=== PATIENT | female | born 1935 | race Caucasian/White ===

== ENCOUNTER 2020-03-23 14:13 | Emergency (ER) | payer MEDICARE, OTHER ==
[~2020-03-23] VITALS: Ht 167.7 cm; Wt 81.3 kg
--- OUTSIDE RECORDS SUMMARY | 2020-03-23 14:21 | XMS REPORT | Continuity of Care Document ---
Author Author The [facility] Organization [facility] Address Unknown Phone Unavailable Allergies There is no data. Medications There is no data. Problems There is no data. Procedures There is no data. Results Test Result Range CMP - 11/20/18 12:04 GLUCOSE 103 mg/dL 65-99 UREA NITROGEN (BUN) 16 mg/dL 7-25 CREATININE 1.05 mg/dL 0.60-0.88 eGFR NON-AFR. BANGLADESHI 49 mL/min/1.73m2 > OR = 60 eGFR 57 mL/min/1.73m2 > OR = 60 BUN/CREATININE RATIO 15 (calc) 6-22 SODIUM 139 mmol/L 135-146 POTASSIUM 4.3 mmol/L 3.5-5.3 CHLORIDE 102 mmol/L 98-110 CARBON DIOXIDE 29 mmol/L 20-32 CALCIUM 9.7 mg/dL 8.6-10.4 PROTEIN, TOTAL 7.2 g/dL 6.1-8.1 ALBUMIN 4.7 g/dL 3.6-5.1 GLOBULIN 2.5 g/dL (calc) 1.9-3.7 ALBUMIN/GLOBULIN RATIO 1.9 (calc) 1.0-2. 5 BILIRUBIN, TOTAL 0.6 mg/dL 0.2-1.2 ALKALINE PHOSPHATASE 87 U/L 33-130 AST 17 U/L 10-35 ALT 15 U/L 6-29 CBC w/MANUAL DIFF - 11/20/18 12:04 WHITE BLOOD CELL COUNT 5.5 Thousand/uL 3 .8-10.8 RED BLOOD CELL COUNT 5.30 Million/uL 3.8 0-5.10 HEMOGLOBIN 14.8 g/dL 11.7-15.5 HEMATOCRIT 44.7 % 35.0-45.0 MCV 84.3 fL 80.0-100.0 MCH 27.9 pg 27.0-33.0 MCHC 33.1 g/dL 32.0-36.0 RDW 14.2 % 11.0-15.0 PLATELET COUNT 280 Thousand/uL 140-400 MPV 11.0 fL 7.5-12.5 ABSOLUTE NEUTROPHILS TNP cells/uL NRG CMP - 11/30/19 11:26 GLUCOSE 84 mg/dL 65-99 UREA NITROGEN (BUN) 15 mg/dL 7-25 CREATININE 0.98 mg/dL 0.60-0.88 eGFR NON-AFR. BANGLADESHI 53 mL/min/1.73m2 > OR = 60 eGFR 62 mL/min/1.73m2 > OR = 60 BUN/CREATININE RATIO 15 (calc) 6-22 SODIUM 138 mmol/L 135-146 POTASSIUM 4.7 mmol/L 3.5-5.3 CHLORIDE 101 mmol/L 98-110 CARBON DIOXIDE 28 mmol/L 20-32 CALCIUM 9.6 mg/dL 8.6-10.4 PROTEIN, TOTAL 6.9 g/dL 6.1-8.1 ALBUMIN 4.5 g/dL 3.6-5.1 GLOBULIN 2.4 g/dL (calc) 1.9-3.7 ALBUMIN/GLOBULIN RATIO 1.9 (calc) 1.0-2. 5 BILIRUBIN, TOTAL 0.5 mg/dL 0.2-1.2 ALKALINE PHOSPHATASE 93 U/L 37-153 AST 20 U/L 10-35 ALT 18 U/L 6-29 CBC - 11/30/19 11:26 WHITE BLOOD CELL COUNT 6.3 Thousand/uL 3 .8-10.8 RED BLOOD CELL COUNT 5.19 Million/uL 3.8 0-5.10 HEMOGLOBIN 14.6 g/dL 11.7-15.5 HEMATOCRIT 43.9 % 35.0-45.0 MCV 84.6 fL 80.0-100.0 MCH 28.1 pg 27.0-33.0 MCHC 33.3 g/dL 32.0-36.0 RDW 14.3 % 11.0-15.0 PLATELET COUNT 280 Thousand/uL 140-400 MPV 11.2 fL 7.5-12.5 ABSOLUTE NEUTROPHILS 3100 cells/uL 1500- 7800 ABSOLUTE LYMPHOCYTES 2350 cells/uL 850-3 900 ABSOLUTE MONOCYTES 630 cells/uL 200-950 ABSOLUTE EOSINOPHILS 139 cells/uL 15-500 ABSOLUTE BASOPHILS 82 cells/uL 0-200 NEUTROPHILS 49.2 % NRG LYMPHOCYTES 37.3 % NRG MONOCYTES 10.0 % NRG EOSINOPHILS 2.2 % NRG BASOPHILS 1.3 % NRG CMP - 07/16/20 10:50 GLUCOSE 82 mg/dL 65-99 UREA NITROGEN (BUN) 18 mg/dL 7-25 CREATININE 1.03 mg/dL 0.60-0.88 eGFR NON-AFR. BANGLADESHI 50 mL/min/1.73m2 > OR = 60 eGFR 58 mL/min/1.73m2 > OR = 60 BUN/CREATININE RATIO 17 (calc) 6-22 SODIUM 139 mmol/L 135-146 POTASSIUM 4.7 mmol/L 3.5-5.3 CHLORIDE 100 mmol/L 98-110 CARBON DIOXIDE 28 mmol/L 20-32 CALCIUM 9.7 mg/dL 8.6-10.4 PROTEIN, TOTAL 7.1 g/dL 6.1-8.1 ALBUMIN 4.4 g/dL 3.6-5.1 GLOBULIN 2.7 g/dL (calc) 1.9-3.7 ALBUMIN/GLOBULIN RATIO 1.6 (calc) 1.0-2. 5 BILIRUBIN, TOTAL 0.6 mg/dL 0.2-1.2 ALKALINE PHOSPHATASE 91 U/L 37-153 AST 19 U/L 10-35 ALT 21 U/L 6-29 Encounters ACCT No. Visit Date/Time Discharge Status Pt. Type Provider Facility Loc./Unit Complaint [id number] 02/21/2020 10:20:00 02/21/2020 23:59: 59 CLS [facility] [id number] 02/21/2020 10:20:00 Document Registration [id number] 11/30/2019 11:00:00 Document Registration [id number] 11/20/2018 09:00:00 Document Registration [id number] 03/23/2020 14:16:[address] Emergency OPAL HERNANDEZ, LUAN Swanson [facility] ER FS PT FEELS ANXIOUS
--- NOTE | 2020-03-23 14:55 | NUR ---
Cornelius barragan in [facility] - 03/23/20 at 1602 by [id number] Contacted by [facility] at this time and was told that they would start sending out additional referrals to other mental health facilities such as [facility] and [facility].
--- NOTE | 2020-03-23 14:56 | ED Cardiac General ---
History of Present Illness General Chief Complaint: Cardiac/General Problems Stated Complaint: PT FEELS ANXIOUS Nursing Triage Note: Patient presents to the ED with c/o recurrent episodes of jitteriness, shakiness, racing heart rate. She reports that she has had 3 episodes today and felt she needed to be evaluated. She states, "I feel like I am going to ". History of Present Illness Date Seen by Provider: Mar 23, 2020 Time Seen by Provider: 14:51 Initial Comments Pt presents with an episode of shakiness, heart racing that happened earlier. She says that she had a spell that happened around 11am today. She had another spell about 2 months ago. She just felt like couldn't do anything, she felt like she was about to , she felt like her heart was racing, felt weak all over. Does not have any pain during these episodes. She feels better now. Allergies and Home Medications Allergies Coded Allergies: No Known Drug Allergies (Unverified , 03/23/20) Patient Home Medication List Home Medication List Reviewed: Yes Review of Systems Review of Systems Constitutional: No chills, No fever; weakness EENTM: No Blurred Vision, No Double Vision Respiratory: Denies Cough, Denies Shortness of Air Cardiovascular: Lightheadedness, Palpitations Gastrointestinal: Denies Nausea, Denies Vomiting Genitourinary: Denies Burning, Denies Discharge Musculoskeletal: No back pain, No muscle pain Skin: No lesions, No rash Psychiatric/Neurological: Anxiety; Denies Numbness, Denies Weakness Past Mpaacdm-Gaoqoa-Tuiqzd Hx Patient Social History Alcohol Use: Denies Use Recreational Drug Use: No Smoking Status: Former Smoker Type Used: Cigarettes Former Smoker, Quit: Aug 08, 2009 2nd Hand Smoke Exposure: No Recent Foreign Travel: No Contact w/Someone Who Travel: No Recent Infectious Disease Expo: No Recent Hopitalizations: No Physical Abuse: No Sexual Abuse: No Mistreated: No Fear: No Seasonal Allergies Seasonal Allergies: No Past Medical History Appendectomy, Bowel Surgery, Gallbladder Respiratory: Yes COPD Cardiac: Yes High Cholesterol, Hypertension Neurological: No Genitourinary: No Gastrointestinal: No Musculoskeletal: No Endocrine: No HEENT: No Cancer: No Psychosocial: No Integumentary: No Blood Disorders: No Physical Exam Vital Signs Vital Signs - First Documented 03/23/20 14:30 Temp 36.4 Pulse 88 Resp 20 B/P (MAP) 181/70 (107) Pulse Ox 98 O2 Delivery Room Air Capillary Refill : Less Than 3 Seconds Height, Weight, BMI Height: '" Weight: lbs. oz. kg; 28.00 BMI Method: General Appearance: No Apparent Distress, WD/WN HEENT: PERRL/EOMI, Normal ENT Inspection Neck: Normal Inspection, Supple Respiratory: Lungs Clear, Normal Breath Sounds, No Accessory Muscle Use Cardiovascular: Regular Rate, Rhythm, Normal Peripheral Pulses Gastrointestinal: Non Tender, Soft Extremity: Normal Capillary Refill Neurologic/Psychiatric: Alert, Oriented x3, No Motor/Sensory Deficits, Normal Mood/Affect Skin: Normal Color, Warm/Dry Progress/Results/Core Measures Results/Orders Lab Results Laboratory Tests Test 03/23/20 14:20 03/23/20 14:50 Range/Units Urine Color YELLOW Urine Clarity CLEAR Urine pH 7.0 5-9 Urine Specific [place] 1.010 L 1.016-1.022 Urine Protein NEGATIVE NEGATIVE Urine Glucose (UA) NEGATIVE NEGATIVE Urine Ketones NEGATIVE NEGATIVE Urine Nitrite NEGATIVE NEGATIVE Urine Bilirubin NEGATIVE NEGATIVE Urine Urobilinogen 0.2 < = 1.0 MG/DL Urine Leukocyte Esterase NEGATIVE NEGATIVE Urine RBC (Auto) NEGATIVE NEGATIVE Urine RBC NONE /HPF Urine WBC 2-5 /HPF Urine Squamous Epithelial Cells 10-25 H /HPF Urine Crystals NONE /LPF Urine Bacteria NEGATIVE /HPF Urine Casts NONE /LPF Urine Mucus NEGATIVE /LPF Urine Culture Indicated NO White Blood Count 7.0 4.3-11.0 10^3/uL Red Blood Count 5.03 4.35-5.85 10^6/uL Hemoglobin 14.4 11.5-16.0 G/DL Hematocrit 42 35-52 % Mean Corpuscular Volume 84 80-99 FL Mean Corpuscular Hemoglobin 29 25-34 PG Mean Corpuscular Hemoglobin Concent 34 32-36 G/DL Red Cell Distribution Width 13.2 10.0-14.5 % Platelet Count 287 130-400 10^3/uL Mean Platelet Volume 10.2 7.4-10.4 FL Neutrophils (%) (Auto) 60 42-75 % Lymphocytes (%) (Auto) 29 12-44 % Monocytes (%) (Auto) 9 0-12 % Eosinophils (%) (Auto) 1 0-10 % Basophils (%) (Auto) 1 0-10 % Neutrophils # (Auto) 4.2 1.8-7.8 X 10^3 Lymphocytes # (Auto) 2.0 1.0-4.0 X 10^3 Monocytes # (Auto) 0.7 0.0-1.0 X 10^3 Eosinophils # (Auto) 0.1 0.0-0.3 10^3/uL Basophils # (Auto) 0.1 0.0-0.1 10^3/uL Sodium Level 140 135-145 MMOL/L Potassium Level 4.3 3.6-5.0 MMOL/L Chloride Level 101 98-107 MMOL/L Carbon Dioxide Level 28 21-32 MMOL/L Anion Gap 11 5-14 MMOL/L Blood Urea Nitrogen 15 7-18 MG/DL Creatinine 1.21 0.60-1.30 MG/DL Estimat Glomerular Filtration Rate 42 BUN/Creatinine Ratio 12 Glucose Level 109 H 70-105 MG/DL Calcium Level 10.0 8.5-10.1 MG/DL Corrected Calcium 9.7 8.5-10.1 MG/DL Total Bilirubin 0.3 0.1-1.0 MG/DL Aspartate Amino Transf (AST/SGOT) 22 5-34 U/L Alanine Aminotransferase (ALT/SGPT) 18 0-55 U/L Alkaline Phosphatase 88 40-136 U/L Troponin I < 0.30 <0.30 NG/ML Total Protein 7.3 6.4-8.2 GM/DL Albumin 4.4 3.2-4.5 GM/DL My Orders Orders - LUAN JOSEPH MD Cbc With Automated Diff (03/23/20 14:38) Comprehensive Metabolic Panel (03/23/20 14:38) Troponin I Fs (03/23/20 14:38) Ua Culture If Indicated (03/23/20 14:38) Ekg Tracing (03/23/20 14:30) Chest Pa/Lat (2 View) (03/23/20 15:20) Vital Signs/I&O 03/23/20 14:30 Temp 36.4 Pulse 88 Resp 20 B/P (MAP) 181/70 (107) Pulse Ox 98 O2 Delivery Room Air Blood Pressure Mean: 107 Progress Progress Note : Time: 15:38 Progress Note Workup including EKG and troponin negative, CXR with no acute finding. Pt feels fine here in the ED. Will discharge home. 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 Patient Instructions: Generalized Weakness (DC) LUAN JOSEPH MD Mar 23, 2020 14:56
[2020-03-23 15:00] LABS: BILIRUBIN,URINE NEGATIVE (NEGATIVE); CLARITY,URINE CLEAR; COLOR,URINE YELLOW; GLUCOSE, URINE (UA) NEGATIVE (NEGATIVE); KETONES,URINE NEGATIVE (NEGATIVE); LEUKOCYTE ESTERASE ,URINE NEGATIVE (NEGATIVE); NITRITE,URINE NEGATIVE (NEGATIVE); PROTEIN,URINE NEGATIVE (NEGATIVE)
[2020-03-23 15:01] LABS: BACTERIA,URINE NEGATIVE /HPF
[2020-03-23 15:05] LABS: BASOPHILS # (AUTO) 0.1 10^3/uL (0.0-0.1); BASOPHILS % (AUTO) 1 % (0-10); EOSINOPHILS # (AUTO) 0.1 10^3/uL (0.0-0.3); EOSINOPHILS % (AUTO) 1 % (0-10); HEMATOCRIT 42 % (35-52); HEMOGLOBIN 14.4 G/DL (11.5-16.0); LYMPHOCYTES % (AUTO) 29 % (12-44); MEAN CORPUSCULAR HEMOGLOBIN 29 PG (25-34); MEAN CORPUSCULAR HGB CONC 34 G/DL (32-36); MEAN CORPUSCULAR VOLUME 84 FL (80-99); MEAN PLATELET VOLUME 10.2 FL (7.4-10.4); MONOCYTES # (AUTO) 0.7 X 10^3 (0.0-1.0); MONOCYTES % (AUTO) 9 % (0-12); NEUTROPHILS # (AUTO) 4.2 X 10^3 (1.8-7.8); NEUTROPHILS % (AUTO) 60 % (42-75); PLATELET COUNT 287 10^3/uL (130-400); RED CELL DISTRIBUTION WIDTH 13.2 % (10.0-14.5)
[2020-03-23 15:19] LABS: ALKALINE PHOSPHATASE 88 U/L (40-136); BILIRUBIN,TOTAL 0.3 MG/DL (0.1-1.0); BUN/CREATININE RATIO 12; CARBON DIOXIDE 28 MMOL/L (21-32); CHLORIDE 101 MMOL/L (98-107); CREATININE SERUM 1.21 MG/DL (0.60-1.30); GFR ESTIMATED 42; GLUCOSE 109 MG/DL (70-105); POTASSIUM 4.3 MMOL/L (3.6-5.0); SODIUM 140 MMOL/L (135-145)
[2020-03-23 15:20] LABS: ALANINE AMINOTRANSFERASE 18 U/L (0-55); ALBUMIN 4.4 GM/DL (3.2-4.5); TOTAL PROTEIN 7.3 GM/DL (6.4-8.2)
[2020-03-23 15:44] VITALS: BP 178/70
--- NOTE | 2020-03-23 15:52 | Diagnostic Imaging Report ---
INDICATION: Recurrent episodes of jitteriness, shakiness, racing heart rate and chest pain. TECHNIQUE: Two view chest, 3:25 PM. CORRELATION STUDY: None. FINDINGS: Heart size within normal limits. Tortuous course of the thoracic aorta. Calcification of the aortic arch. Lung edouard are hyperinflated but overall clear. Calcified granuloma in lateral left mid lung. Visualized osseous structures are unremarkable. IMPRESSION: Hyperinflated lung edouard compatible with COPD. No infiltrate or acute abnormality. Dictated by: Dictated on workstation # [id number]
== END 2020-03-23 15:44 | disposition home or self-care (01) ==
LOC: ER FS 14:16
DX: R53.1 Weakness (principal); R00.2 Palpitations; Z87.891 Personal history of nicotine dependence
CPT/HCPCS: 36415; 71046; 80053; 81000; 84484; 85025; 93005

== ENCOUNTER 2022-11-09 15:24 | Emergency (ER) | payer MEDICARE ==
[2022-11-09 15:52] LABS: BASOPHILS # (AUTO) 0.1 10^3/uL (0.0-0.1); BASOPHILS % (AUTO) 1 % (0-10); EOSINOPHILS # (AUTO) 0.2 10^3/uL (0.0-0.3); EOSINOPHILS % (AUTO) 3 % (0-10); HEMATOCRIT 39 % (35-52); LYMPHOCYTES # (AUTO) 1.8 10^3/uL (1.0-4.0); LYMPHOCYTES % (AUTO) 27 % (12-44); MEAN CORPUSCULAR HEMOGLOBIN 28 pg (25-34); MEAN CORPUSCULAR HGB CONC 33 g/dL (32-36); MEAN CORPUSCULAR VOLUME 84 fL (80-99); MONOCYTES # (AUTO) 0.7 10^3/uL (0.0-1.0); MONOCYTES % (AUTO) 11 % (0-12); NEUTROPHILS # (AUTO) 3.9 10^3/uL (1.8-7.8); NEUTROPHILS % (AUTO) 58 % (42-75); PLATELET COUNT 266 10^3/uL (130-400); WHITE BLOOD COUNT 6.7 10^3/uL (4.3-11.0)
--- NOTE | 2022-11-09 16:12 | ED Lower Extremity ---
General Chief Complaint: Lower Extremity Stated Complaint: FEET SWELLING Nursing Triage Note: Patient reports she began having bilateral lower extremity swelling yesterday. Source: patient History of Present Illness Date Seen by Provider: Nov 09, 2022 Time Seen by Provider: 15:31 Initial Comments 87-year-old female presenting with complaints of bilateral lower extremity swelling that started yesterday. She felt like the swelling had gone down some overnight but then got worse again throughout the day. She had called the nurse advice line for her insurance and they told her she needed to be seen in the emergency department for possible heart problems. She denies any chest pain, nausea, vomiting, history of heart problems. She does have a history of high blood pressure. She denies having any pain to her legs and there is no increased redness or warmth. She was just concerned because they were swollen. Onset: yesterday Severity: moderate Method of Injury: unknown Modifying Factors: Improves With Other (Elevation of her legs helped with the swelling) Allergies and Home Medications Allergies Coded Allergies: No Known Drug Allergies (Unverified , 03/23/20) Patient Home Medication List Home Medication List Reviewed: Yes Review of Systems Constitutional: No chills, No fever EENTM: no symptoms reported Respiratory: no symptoms reported Cardiovascular: edema Gastrointestinal: no symptoms reported Genitourinary: no symptoms reported Musculoskeletal: no symptoms reported Skin: no symptoms reported Psychiatric/Neurological: No Symptoms Reported Past Grlcetp-Hcbtem-Ueibdh Hx Patient Social History Tobacco Use?: No Substance use?: No Alcohol Use?: No Pt feels they are or have been: No Seasonal Allergies Seasonal Allergies: No Past Medical History Surgery/Hospitalization HX: COPD, HTN Appendectomy, Bowel Surgery, Gallbladder Respiratory: Yes COPD Cardiac: Yes High Cholesterol, Hypertension Neurological: No Genitourinary: No Gastrointestinal: No Musculoskeletal: No Endocrine: No HEENT: No Cancer: No Psychosocial: No Integumentary: No Blood Disorders: No Physical Exam Vital Signs Vital Signs - First Documented 11/09/22 15:45 Temp 36.9 Pulse 98 Resp 18 B/P (MAP) 167/77 (107) Pulse Ox 93 O2 Delivery Room Air Capillary Refill : Less Than 3 Seconds Height, Weight, BMI Height: '" Weight: lbs. oz. kg; 28.00 BMI Method: General Appearance: WD/WN, no apparent distress Cardiovascular: normal peripheral pulses, regular rate, rhythm Respiratory: chest non-tender, lungs clear, normal breath sounds Gastrointestinal: normal bowel sounds, non tender, soft, no pulsatile mass Ankles: bilateral ankle non-tender, bilateral ankle normal range of motion, bilateral ankle swelling Feet: bilateral foot non-tender, bilateral foot normal range of motion, bilateral foot swelling Neurologic/Tendon: normal sensation, normal motor functions Neurologic/Psychiatric: alert, oriented x 3 Skin: normal color, warm/dry Progress/Results/Core Measures Results/Orders Lab Results Laboratory Tests Test 11/09/22 15:43 11/09/22 16:05 Range/Units White Blood Count 6.7 4.3-11.0 10^3/uL Red Blood Count 4.69 3.80-5.11 10^6/uL Hemoglobin 13.0 11.5-16.0 g/dL Hematocrit 39 35-52 % Mean Corpuscular Volume 84 80-99 fL Mean Corpuscular Hemoglobin 28 25-34 pg Mean Corpuscular Hemoglobin Concent 33 32-36 g/dL Red Cell Distribution Width 13.5 10.0-14.5 % Platelet Count 266 130-400 10^3/uL Mean Platelet Volume 10.0 9.0-12.2 fL Immature Granulocyte % (Auto) 0 % Neutrophils (%) (Auto) 58 42-75 % Lymphocytes (%) (Auto) 27 12-44 % Monocytes (%) (Auto) 11 0-12 % Eosinophils (%) (Auto) 3 0-10 % Basophils (%) (Auto) 1 0-10 % Neutrophils # (Auto) 3.9 1.8-7.8 10^3/uL Lymphocytes # (Auto) 1.8 1.0-4.0 10^3/uL Monocytes # (Auto) 0.7 0.0-1.0 10^3/uL Eosinophils # (Auto) 0.2 0.0-0.3 10^3/uL Basophils # (Auto) 0.1 0.0-0.1 10^3/uL Immature Granulocyte # (Auto) 0.0 0.0-0.1 10^3/uL Prothrombin Time 12.9 12.2-14.7 SEC INR Comment 0.9 0.8-1.4 Activated Partial Thromboplast Time 26 24-35 SEC D-Dimer 0.97 H 0.00-0.49 UG/ML Sodium Level 137 135-145 MMOL/L Potassium Level 4.2 3.6-5.0 MMOL/L Chloride Level 101 98-107 MMOL/L Carbon Dioxide Level 25 21-32 MMOL/L Anion Gap 11 5-14 MMOL/L Blood Urea Nitrogen 22 H 7-18 MG/DL Creatinine 1.13 0.60-1.30 MG/DL Estimat Glomerular Filtration Rate 47 BUN/Creatinine Ratio 19 Glucose Level 102 70-105 MG/DL Calcium Level 9.6 8.5-10.1 MG/DL Corrected Calcium 9.2 8.5-10.1 MG/DL Magnesium Level 2.1 1.6-2.4 MG/DL Total Bilirubin 0.4 0.1-1.0 MG/DL Aspartate Amino Transf (AST/SGOT) 22 5-34 U/L Alanine Aminotransferase (ALT/SGPT) 19 0-55 U/L Alkaline Phosphatase 102 40-136 U/L Troponin I < 0.30 <0.30 NG/ML Pro-B-Type Natriuretic Peptide 93.4 <450.0 PG/ML Total Protein 7.5 6.4-8.2 GM/DL Albumin 4.5 3.2-4.5 GM/DL Urine Color YELLOW Urine Clarity SL CLOUDY Urine pH 6.0 5-9 Urine Specific [place] 1.015 L 1.016-1.022 Urine Protein NEGATIVE NEGATIVE Urine Glucose (UA) NEGATIVE NEGATIVE Urine Ketones NEGATIVE NEGATIVE Urine Nitrite NEGATIVE NEGATIVE Urine Bilirubin NEGATIVE NEGATIVE Urine Urobilinogen 0.2 < = 1.0 MG/DL Urine Leukocyte Esterase 1+ H NEGATIVE Urine RBC (Auto) NEGATIVE NEGATIVE Urine RBC NONE /HPF Urine WBC 10-25 H /HPF Urine Squamous Epithelial Cells 2-5 /HPF Urine Crystals NONE /LPF Urine Bacteria TRACE /HPF Urine Casts NONE /LPF Urine Mucus NEGATIVE /LPF Urine Culture Indicated YES My Orders Orders - STONE BARBER MD Cbc With Automated Diff (11/09/22 15:40) Magnesium (11/09/22 15:40) Comprehensive Metabolic Panel (11/09/22 15:40) Protime With Inr (11/09/22 15:40) Partial Thromboplastin Time (11/09/22 15:40) Monitor-Rhythm Ecg Trace Only (11/09/22 15:40) Ed Iv/Invasive Line Start (11/09/22 15:40) Troponin I Fs (11/09/22 15:40) Probnp Fs (11/09/22 15:40) Fibrin Degradation Products (11/09/22 15:40) Ua Culture If Indicated (11/09/22 15:40) Chest 1 View Ap/Pa Only (11/09/22 ) Urine Culture (11/09/22 16:05) Enoxaparin Injection (Lovenox Injection) (11/09/22 16:57) Vital Signs/I&O 11/09/22 11/09/22 15:45 17:08 Temp 36.9 36.9 Pulse 98 78 Resp 18 18 B/P (MAP) 167/77 (107) 145/57 Pulse Ox 93 94 O2 Delivery Room Air Room Air Blood Pressure Mean: 107 Progress Progress Note #1: Progress Note Potential diagnosis of congestive heart failure, peripheral vascular disease, DVT, medication side effect. Obtain peripheral IV access and send labs for complete blood count, comprehensive metabolic profile, coagulation factors, D-dimer, troponin, proBNP. Have her keep legs elevated while you are getting testing. Progress Note #2: Progress Note Complete blood count did not show an elevated white blood cell count as it was 6.7. She was not showing severe anemia as her hemoglobin was normal at 13. Her comprehensive metabolic profile did not show any acute significant abnormality to account for leg swelling. Her troponin was less than 0.3. Her proBNP was not elevated. She did have mild elevation of her D-dimer to 0.97. As she does not have pain to either leg DVT is less likely but will administer a dose of Lovenox at 1.5 mg/kg to give her a 24-hour dose and have her take written order for outpatient Doppler of bilateral lower extremities to evaluate for DVT. Reviewed the process of going through the clinic with [facility] versus [facility] radiology. Advised that she needed to have the test done tomorrow to help rule out DVT and if she had new symptoms or chest pain or shortness of breath she needed to be seen right away. Diagnostic Imaging Diagonstic Imaging: Xray Plain Films/CT/US/NM/MRI: chest Comments NAME: ASIF BRAVO [facility] REC#: [id number] PT STATUS: REG ER : 1935 PHYSICIAN: STONE BARBER MD ADMIT DATE: 11/09/22/ER FS Signed Date of Exam:11/09/22 CHEST 1 VIEW AP/PA ONLY INDICATION: Leg swelling. COMPARISON: 03/23/2020. FINDINGS: Heart size is upper limits but stable. Benign calcified granuloma in the left midlung, stable. No vascular congestion or noreen edema. No consolidating pneumonia or pleural effusion. There is no pneumothorax. IMPRESSION: Stable chronic findings. Dictated by: Dictated on workstation # [id number] Dict: 11/09/22 1628 Trans: 11/09/221651 [id number] [id number] Interpreted by: JUNIOR CARDOZO Electronically signed by: JUNIOR CARDOZO 11/09/221651 Reviewed: Reviewed by Me Departure Impression Primary Impression: Bilateral lower extremity edema Additional Impression: Elevated d-dimer Disposition: 01 HOME, SELF-CARE Condition: Stable Departure-Patient Inst. Decision time for Depature: 16:49 Referrals: ELIZABETH GOODMAN (PCP/Family) Primary Care Physician Patient Instructions: Dependent Edema (DC), Swelling Add. Discharge Instructions: Call radiology scheduling in the morning at [phone] and let them know you have an order to get an ultrasound performed. They should be able to help get that scheduled for [facility] to have an outpatient ultrasound of your legs to look into the swelling and see if you have a blood clot or circulation problem causing the swelling. Alternatively you could call [facility] at [phone] in the morning and let them kn ow you have an outpatient order for ultrasound and their auto body technician, Twyla, may be able to do the testing here in [place] tomorrow through [facility]. Your tests do not show any problems with your heart but you did have a test called a D Dimer that was slightly elevated. This could be from inflammation but could also be from a blood clot in your legs. The Lovenox blood thinner shot tonight in the ED will thin your blood and treat for possible blood clot until you can get the test done tomorrow and know for sure if that is the cause. If the ultrasound tomorrow shows a blood clot then you will need to continue on blood thinners to treat for this and work with your regular provider in [place] for continued care and treatment. Tonight try to elevate your legs and rest to see if that helps the swelling go down as well. All discharge instructions reviewed with patient and/or family. Voiced understanding. STONE BARBER MD Nov 09, 2022 16:12
[2022-11-09 16:19] LABS: BILIRUBIN,URINE NEGATIVE (NEGATIVE); COLOR,URINE YELLOW; GLUCOSE, URINE (UA) NEGATIVE (NEGATIVE); KETONES,URINE NEGATIVE (NEGATIVE); LEUKOCYTE ESTERASE ,URINE 1+ (NEGATIVE); NITRITE,URINE NEGATIVE (NEGATIVE); PROTEIN,URINE NEGATIVE (NEGATIVE)
[2022-11-09 16:19] LABS: ALBUMIN 4.5 GM/DL (3.2-4.5); BILIRUBIN,TOTAL 0.4 MG/DL (0.1-1.0); CALCIUM 9.6 MG/DL (8.5-10.1); CREATININE SERUM 1.13 MG/DL (0.60-1.30); MAGNESIUM 2.1 MG/DL (1.6-2.4); POTASSIUM 4.2 MMOL/L (3.6-5.0); TOTAL PROTEIN 7.5 GM/DL (6.4-8.2)
[2022-11-09 16:24] LABS: BACTERIA,URINE TRACE /HPF
[2022-11-09 16:25] LABS: CLARITY,URINE SL CLOUDY
[2022-11-09 16:32] LABS: FIBRIN DEGRADATION PRODUCTS 0.97 UG/ML (0.00-0.49); INR 0.9 (0.8-1.4); PROTHROMBIN TIME PATIENT 12.9 SEC (12.2-14.7)
--- NOTE | 2022-11-09 16:33 | Diagnostic Imaging Report ---
INDICATION: Leg swelling. COMPARISON: 03/23/2020. FINDINGS: Heart size is upper limits but stable. Benign calcified granuloma in the left midlung, stable. No vascular congestion or noreen edema. No consolidating pneumonia or pleural effusion. There is no pneumothorax. IMPRESSION: Stable chronic findings. Dictated by: Dictated on workstation # [id number]
[2022-11-09] MEDS ORDERED: ENOXAPARIN 60 MG/0.6 ML (LOVENOX) SYR SC STA (16:57)
[2022-11-09 17:08] VITALS: BP 145/57
== END 2022-11-09 17:09 | disposition home or self-care (01) ==
LOC: EDUNIT# 15:24 → ER FS 15:26
DX: R60.0 Localized edema (principal); R79.1 Abnormal coagulation profile
CPT/HCPCS: 36415; 71045; 80053; 81000; 83735; 83880; 84484; 85025; 85379; 85610; 85730; 87088; 93041

== ENCOUNTER → 2022-11-11 | Outpatient (CLI) | payer MEDICARE ==
--- NOTE | 2022-11-11 11:43 | Diagnostic Imaging Report ---
PROCEDURE: US Venous Lower Ext Justin. TECHNIQUE: Multiple real-time grayscale images were obtained over the lower extremities in various projections, bilaterally. Additional duplex Doppler and color Doppler images were also obtained. INDICATION: Bilateral leg pain and swelling. FINDINGS: There is no evidence of right or left lower extremity DVT. Both lower extremity deep venous systems demonstrate normal compressibility with normal response to augmentation and Valsalva. No fluid collection or mass is detected. IMPRESSION: No evidence of right or left lower extremity DVT. Dictated by: Dictated on workstation # [id number]
== END ==
LOC: RAD FS 10:21
PROVIDERS: ATTEND Family Medicine
DX: M79.89 Other specified soft tissue disorders (principal); M79.604 Pain in right leg; M79.605 Pain in left leg
CPT/HCPCS: 93970